=== PATIENT | female | born 1965 | race Caucasian/White ===

== ENCOUNTER → 2018-01-27 14:45 | Outpatient (CLI) | payer OTHER, SELFPAY ==
--- NOTE | 2018-01-27 | DI.MG.S_ITS ---
BILATERAL DIGITAL SCREENING MAMMOGRAM 3D/2D WITH CAD: 01/27/2018 CLINICAL: Routine screening. Comparison is made to exams dated: 11/08/2011 mammogram - [facility] and 04/16/2003 mammogram - [facility]. The tissue of both breasts is heterogeneously dense. This may lower the sensitivity of mammography. Current study was also evaluated with a Computer Aided Detection (CAD) system. No significant masses, calcifications, or other findings are seen in either breast. There has been no significant interval change. IMPRESSION: NEGATIVE There is no mammographic evidence of malignancy. A 1 year screening mammogram is recommended. This exam was interpreted at Station ID: [id number]. NOTE: For mammograms, a report in lay terms will be sent to the patient. Approximately 15% of breast malignancies will not be visualized mammographically. In the management of a palpable breast mass, a negative mammogram must not discourage biopsy of a clinically suspicious lesion. Electronically Signed By: Rell coronado/mehul:01/27/2018 17:08:39 letter sent: Normal Exam ACR BI-RADS Category 1: Negative 3341F
== END ==
PROVIDERS: Family Provider Family Medicine; PCP Family Medicine; Visit Provider Family Medicine
DX: Z12.31 Encounter for screening mammogram for malignant neoplasm of breast (principal)
CPT/HCPCS: 77063; 77067

== ENCOUNTER 2019-11-13 12:34 | Emergency (ER) | payer OTHER, MEDICAID, SELFPAY ==
[2019-11-13 12:42] VITALS: BP 140/78; PULSE 85; RESP 16; TEMP 36.9; O2SAT 100; BMI 25.1
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
--- NOTE | 2019-11-13 12:53 | DI.RAD.S_ITS ---
PROCEDURE: XR CHEST 1V INDICATIONS: chest tightness TECHNIQUE: One view of the chest was acquired. COMPARISON: None. FINDINGS: Surgical changes and devices: None. Lungs and pleura: Lungs are clear. No pleural effusions or pneumothorax. Mediastinum: Mediastinal contours appear normal. Heart size is normal. Bones and chest wall: No suspicious bony lesions. Overlying soft tissues appear unremarkable. IMPRESSION: No acute cardiopulmonary process is evident. Dictated by: Alfonso Sanchez M.D. on 11/13/2019 at 12:40 Approved by: Alfonso Sanchez M.D. on 11/13/2019 at 12:41
--- NOTE | 2019-11-13 13:01 | DI.CT.S_ITS ---
PROCEDURE: CT HEAD/BRAIN WO CON INDICATIONS: memory loss, confusion TECHNIQUE: Noncontrast 4.5 mm thick angled axial sections acquired from the foramen magnum to the vertex, with coronal and sagittal reformats. For radiation dose reduction, the following was used: automated exposure control, adjustment of mA and/or kV according to patient size. COMPARISON: None. FINDINGS: Image quality: Excellent. CSF spaces: Basal cisterns are patent. No extra-axial fluid collections. Ventricles are normal in size and shape. Brain: No midline shift. No intracranial masses or hemorrhage. Cruz-white matter interface is normal. Skull and face: Calvarium and visualized facial bones are intact, without suspicious lesions. Sinuses: Visualized sinuses and mastoids are clear. IMPRESSION: Unremarkable noncontrast head CT for age. Dictated by: Joaquin Hall M.D. on 11/13/2019 at 12:22 Approved by: Joaquin Hall M.D. on 11/13/2019 at 12:23
[2019-11-13 13:08] LABS: Add Manual Diff / Slide Review NO; Basophils Absolute Auto 0 /uL (0-100); Basophils Percent Auto 0.5 % (0-2); Eosinophils Absolute Auto 200 /uL (0-450); Eosinophils Percent Auto 3.4 % (2-4); Hematocrit 38.6 % (36-46); Hemoglobin 12.8 g/dL (12.0-16.0); Lymphocytes Absolute Auto 1900 /uL (1100-4500); Lymphocytes Percent Auto 42.8 % (25-40); Mean Corpuscular HGB Conc 33.1 % (30-36); Mean Corpuscular Volume 90.6 fL (80-100); Monocytes Absolute Auto 300 /uL (0-900); Monocytes Percent Auto 7.2 % (3-14); Neutrophils Absolute Auto 2100 /uL (1500-7000); Neutrophils Percent Auto 46.1 % (50-75); Platelet Count 243 X10^3/uL (150-400); Red Blood Cell Count 4.26 X10^6/uL (4.0-5.2); Red Cell Distribution Width 12.9 % (11.6-14.8); White Blood Cell Count 4.5 X10^3/uL (4.5-11.0)
[2019-11-13 13:19] LABS: Alanine Aminotransferase 14 IU/L (<35); Albumin 4.7 g/dL (3.5-5.0); Albumin Globulin Ratio 1.3 (1.0-2.8); Alkaline Phosphatase 56 U/L (38-126); Aspartate Aminotransferase 25 IU/L (14-36); BUN Creatinine Ratio 15.7 (6-22); Bilirubin Total 0.4 mg/dL (0.2-1.3); Blood Urea Nitrogen 13 mg/dL (7-17); Calcium 9.6 mg/dL (8.4-10.2); Carbon Dioxide 25 mmol/L (22-32); Chloride 107 mmol/L (98-107); Creatine Kinase 99 U/L (30-135); Estimated Glomerular Filt Rate > 60.0 mL/min (>60); Globulin 3.5 g/dL (1.7-4.1); Glucose 104 mg/dL (70-100); HEMOLYSIS < 15 (0-50); Lipase 144 U/L (23-300); Potassium 3.7 mmol/L (3.4-5.1); Sodium 141 mmol/L (137-145); Total Protein 8.2 g/dL (6.3-8.2)
[2019-11-13 13:30] VITALS: BP 132/78; PULSE 79; RESP 18; O2SAT 99
[2019-11-13 13:30] LABS: Troponin I < 0.012 ng/mL (0.01-0.034)
[2019-11-13] MEDS: SODIUM CHLORIDE 0.9% 1,000 ML 1000 ML IV (13:37)
[2019-11-13 15:00] VITALS: BP 120/69; PULSE 76; RESP 18; O2SAT 98
== END 2019-11-13 16:19 | disposition home or self-care (01) ==
PROVIDERS: Emergency Provider Nurse Practitioner; Family Provider Family Medicine; PCP Family Medicine
DX: R41.3 Other amnesia (principal); R07.9 Chest pain, unspecified
CPT/HCPCS: 36415; 70450; 71045; 80053; 81003; 81025; 82550; 83690; 84484; 85025; 93005; 99284; 99285

== ENCOUNTER → 2020-03-10 10:41 | Outpatient (CLI) | payer OTHER, MEDICAID, SELFPAY ==
--- NOTE | 2020-03-10 11:05 | DI.MG.S_ITS ---
Patient Name: PERRY NEWMAN date: 1965 Sex: F Attending Physician: Shanelle Indications: Date: 03/10/2020 10:58 At the request of: JERRY SCHULTE Procedure: MM screening mammo BI BILATERAL DIGITAL SCREENING MAMMOGRAM 3D/2D WITH CAD: 03/10/2020 CLINICAL: Routine screening. Family history of breast cancer. Comparison is made to exams dated: 01/27/2018 mammogram, 11/08/2011 mammogram - [facility], and 04/16/2003 mammogram - [facility]. The tissue of both breasts is heterogeneously dense. This may lower the sensitivity of mammography. Current study was also evaluated with a Computer Aided Detection (CAD) system. There is a new 0.8 cm oval equal density focal asymmetry in the right breast at 11 o'clock posterior depth. No other significant masses, calcifications, or other findings are seen in either breast. IMPRESSION: INCOMPLETE: NEEDS ADDITIONAL IMAGING EVALUATION The new 0.8 cm oval equal density focal asymmetry in the right breast is indeterminate. Additional views with possible ultrasound are recommended. This exam was interpreted at Station ID: [id number]. NOTE: For mammograms, a report in lay terms will be sent to the patient. Approximately 15% of breast malignancies will not be visualized mammographically. In the management of a palpable breast mass, a negative mammogram must not discourage biopsy of a clinically suspicious lesion. Electronically Signed By: Tawanda Yee M.D. at/mehul:03/10/2020 11:56:53 letter sent: Additional Imaging Needed ACR BI-RADS Category 0: Incomplete 3340F Continued Report - Page 2 of 2 Patient Name: PERRY NEWMAN date: 1965 Sex: F Attending Physician: Shanelle Indications: Date: 03/10/2020 10:58 At the request of: JERRY SCHULTE Procedure: MM screening mammo BI
== END ==
PROVIDERS: Family Provider Family Medicine; PCP Family Medicine; Referring Provider Family Medicine; Visit Provider Family Medicine
DX: Z12.31 Encounter for screening mammogram for malignant neoplasm of breast (principal); Z80.3 Family history of malignant neoplasm of breast
CPT/HCPCS: 77063; 77067

== ENCOUNTER → 2020-04-08 08:44 | Outpatient (CLI) | payer OTHER, MEDICAID, SELFPAY ==
--- NOTE | 2020-04-08 | DI.MG.S_ITS ---
UNILATERAL RIGHT DIGITAL DIAGNOSTIC MAMMOGRAM 3D/2D WITH ADDITIONAL VIEWS: 04/08/2020 CLINICAL: Additional evaluation requested from prior study. Comparison is made to exams dated: 03/10/2020 mammogram, 01/27/2018 mammogram, and 11/08/2011 mammogram - [facility]. The tissue of right breast is heterogeneously dense. This may lower the sensitivity of mammography. The 0.8 cm oval equal density focal asymmetry in the right breast at 11 o'clock posterior depth is not seen with spot compression and is consistent with fibroglandular tissue. No other significant masses or calcifications are seen in the breast. IMPRESSION: BENIGN There is no mammographic evidence of malignancy. Return to annual mammogram screening schedule is recommended. This exam was interpreted at Station ID: [id number]. NOTE: For mammograms, a report in lay terms will be sent to the patient. Approximately 15% of breast malignancies will not be visualized mammographically. In the management of a palpable breast mass, a negative mammogram must not discourage biopsy of a clinically suspicious lesion. Electronically Signed By: Berny Banda M.D. jr/:04/08/2020 09:13:19 letter sent: Normal Exam ACR BI-RADS Category 2: Benign Finding(s) 3342F
== END ==
PROVIDERS: Family Provider Family Medicine; PCP Family Medicine; Referring Provider Family Medicine; Visit Provider Family Medicine
DX: R92.8 Other abnormal and inconclusive findings on diagnostic imaging of breast (principal)
CPT/HCPCS: 77065; G0279

== ENCOUNTER → 2020-04-21 16:09 | Outpatient (CLI) | payer OTHER, MEDICAID, SELFPAY ==
--- NOTE | 2020-04-21 | DI.RAD.S_ITS ---
PROCEDURE: XR CERVICAL SPINE 4V OR 5V INDICATIONS: Neck Pain TECHNIQUE: 6 views of the cervical spine were acquired. COMPARISON: None. FINDINGS: Bones: No fracture. Multilevel degenerative endplate sclerosis and spurring. Diffuse facet arthropathy. Diffuse mild narrowing of the cervical disc spaces. Straightening of the normal lordotic curvature. No evidence of abnormal motion with dynamic flexion and extension lateral views. Decreased range of motion Soft tissues: Prevertebral soft tissues are normal in thickness. IMPRESSION: Mild multilevel cervical spondylosis and facet arthropathy. No evidence of abnormal motion with dynamic flexion and extension lateral views. Dictated by: Tulio Etienne M.D. on 04/21/2020 at 17:25 Approved by: Tulio Etienne M.D. on 04/21/2020 at 17:27
== END ==
PROVIDERS: Family Provider Family Medicine; PCP Family Medicine; Referring Provider Family Medicine; Visit Provider Family Medicine
DX: M54.2 Cervicalgia (principal); M47.812 Spondylosis without myelopathy or radiculopathy, cervical region
CPT/HCPCS: 72050

== ENCOUNTER → 2021-05-02 15:51 | Outpatient (CLI) | payer OTHER, MEDICAID, SELFPAY ==
--- NOTE | 2021-05-02 | DI.MG.S_ITS ---
BILATERAL DIGITAL SCREENING MAMMOGRAM 3D/2D WITH CAD: 05/02/2021 CLINICAL: Routine screening. Family history of breast cancer. Comparison is made to exams dated: 04/08/2020 mammogram, 03/10/2020 mammogram, 11/08/2011 mammogram, and 01/27/2018 mammogram - [facility]. The tissue of both breasts is heterogeneously dense. This may lower the sensitivity of mammography. Current study was also evaluated with a Computer Aided Detection (CAD) system. No significant masses, calcifications, or other findings are seen in either breast. There has been no significant interval change. IMPRESSION: NEGATIVE There is no mammographic evidence of malignancy. A 1 year screening mammogram is recommended. This exam was interpreted at Station ID: [id number]. NOTE: For mammograms, a report in lay terms will be sent to the patient. Approximately 15% of breast malignancies will not be visualized mammographically. In the management of a palpable breast mass, a negative mammogram must not discourage biopsy of a clinically suspicious lesion. Electronically Signed By: Ambrose Avery acr/mehul:05/02/2021 16:16:58 letter sent: Normal Exam ACR BI-RADS Category 1: Negative 3341F
== END ==
PROVIDERS: Family Provider Family Medicine; PCP Family Medicine; Referring Provider Family Medicine; Visit Provider Family Medicine
DX: Z12.31 Encounter for screening mammogram for malignant neoplasm of breast (principal); Z80.3 Family history of malignant neoplasm of breast
CPT/HCPCS: 77063; 77067

== ENCOUNTER → 2022-06-08 09:16 | Outpatient (CLI) | payer OTHER, MEDICAID, SELFPAY ==
--- NOTE | 2022-06-08 | DI.MG.S_ITS ---
BILATERAL DIGITAL SCREENING MAMMOGRAM 3D/2D WITH CAD: 06/08/2022 CLINICAL: Routine screening. Family history of breast cancer. Comparison is made to exams dated: 05/02/2021 mammogram, 03/10/2020 mammogram, and 01/27/2018 mammogram - [facility]. There are scattered areas of fibroglandular density in both breasts (category b / 25%-50% glandular tissue). Current study was also evaluated with a Computer Aided Detection (CAD) system. No significant masses, calcifications, or other findings are seen in either breast. There has been no significant interval change. IMPRESSION: NEGATIVE There is no mammographic evidence of malignancy. A 1 year screening mammogram is recommended. Based on Tyrer-Cuzick model (a risk assessment model), the patient's lifetime risk is 24.8% and her 10 year risk is 7.5%. If a patient has an elevated risk, a more comprehensive evaluation should be considered and/or a referral to a genetic counselor. The [employer], [employer], and NCCN Guidelines advise the consideration of Breast MRI as an adjunct to screening mammography in patients whose Lifetime risk to develop breast cancer is 20% or higher. This exam was interpreted at Station ID: [id number]. NOTE: For mammograms, a report in lay terms will be sent to the patient. Approximately 15% of breast malignancies will not be visualized mammographically. In the management of a palpable breast mass, a negative mammogram must not discourage biopsy of a clinically suspicious lesion. Electronically Signed By: Susanne richard/mehul:06/08/2022 14:10:32 letter sent: Normal Exam ACR BI-RADS Category 1: Negative 3341F
== END ==
PROVIDERS: Family Provider Family Medicine; PCP Family Medicine; Referring Provider Family Medicine; Visit Provider Family Medicine
DX: Z12.31 Encounter for screening mammogram for malignant neoplasm of breast (principal); Z80.3 Family history of malignant neoplasm of breast
CPT/HCPCS: 77063; 77067

== ENCOUNTER → 2023-01-22 08:33 | Outpatient (CLI) | payer OTHER, MEDICAID, SELFPAY ==
[2023-01-22 10:56] LABS: Alanine Aminotransferase 16 IU/L (<35); Albumin 4.3 g/dL (3.5-5.0); Albumin Globulin Ratio 1.5 (1.0-2.8); Alkaline Phosphatase 67 U/L (38-126); Aspartate Aminotransferase 20 IU/L (14-36); BUN Creatinine Ratio 19.7 (6-22); Bilirubin Total 0.2 mg/dL (0.2-1.3); Blood Urea Nitrogen 15 mg/dL (7-17); Calcium 9.3 mg/dL (8.4-10.2); Carbon Dioxide 30 mmol/L (22-32); Chloride 103 mmol/L (98-107); Estimated Glomerular Filt Rate > 60 mL/min (>60); Globulin 2.9 g/dL (1.7-4.1); Glucose 89 mg/dL (70-100); HEMOLYSIS < 15 (0-50); Potassium 4.3 mmol/L (3.4-5.1); Sodium 139 mmol/L (137-145); Total Protein 7.2 g/dL (6.3-8.2)
== END ==
PROVIDERS: Family Provider Family Medicine; PCP Registered Nurse; Referring Provider Registered Nurse; Visit Provider Registered Nurse
DX: B35.1 Tinea unguium (principal)
CPT/HCPCS: 36415; 80053

== ENCOUNTER → 2023-03-04 18:36 | Outpatient (CLI) | payer OTHER, MEDICAID, SELFPAY ==
--- NOTE | 2023-03-04 | DI.RAD.S_ITS ---
PROCEDURE: XR CERVICAL SPINE 4V OR 5V INDICATIONS: neck pain TECHNIQUE: 5 views of the cervical spine acquired. COMPARISON: [facility], CR, XR CERVICAL SPINE 4V OR 5V, 04/21/2020, 16:07. FINDINGS: Bones: No fractures or dislocations to the C7 level. Oblique images demonstrate no bony foraminal stenoses. Reversal of the normal cervical lordosis. Moderate disc height loss at C4-5. Mild disc height loss at remaining levels. Patent neural foramen on oblique views. Soft tissues: No prevertebral soft tissue swelling. IMPRESSION: Mild to moderate, multilevel degenerative disc disease. This has not significantly progressed since 2019. Dictated by: Nima Ashraf M.D. on 03/04/2023 at 20:57 Approved by: Nima Ashraf M.D. on 03/04/2023 at 20:59
== END ==
PROVIDERS: Family Provider Family Medicine; PCP Registered Nurse; Referring Provider Registered Nurse; Visit Provider Registered Nurse
DX: G44.209 Tension-type headache, unspecified, not intractable (principal); M50.321 Other cervical disc degeneration at C4-C5 level
CPT/HCPCS: 72050

== ENCOUNTER → 2024-02-05 08:17 | Outpatient (CLI) | payer OTHER, MEDICAID, SELFPAY ==
[2024-02-05 09:06] LABS: Add Manual Diff / Slide Review NO; Basophils Absolute Auto 0 /uL (0-100); Basophils Percent Auto 0.7 % (0-2); Eosinophils Absolute Auto 100 /uL (0-450); Hematocrit 37.8 % (36-46); Hemoglobin 12.8 g/dL (12.0-16.0); Lymphocytes Absolute Auto 2100 /uL (1100-4500); Mean Corpuscular HGB Conc 33.9 % (30-36); Mean Corpuscular Volume 88.5 fL (80-100); Monocytes Absolute Auto 400 /uL (0-900); Monocytes Percent Auto 8.8 % (3-14); Neutrophils Absolute Auto 1900 /uL (1500-7000); Neutrophils Percent Auto 41.5 % (50-75); Platelet Count 228 X10^3/uL (150-400); Red Blood Cell Count 4.27 X10^6/uL (4.0-5.2); Red Cell Distribution Width 12.9 % (11.6-14.8); White Blood Cell Count 4.7 X10^3/uL (4.5-11.0)
[2024-02-05 09:33] LABS: Alanine Aminotransferase 15 IU/L (<35); Albumin 4.4 g/dL (3.5-5.0); Albumin Globulin Ratio 1.6 (1.0-2.8); Alkaline Phosphatase 71 U/L (38-126); Aspartate Aminotransferase 22 IU/L (14-36); BUN Creatinine Ratio 22.5 (6-22); Bilirubin Total 0.5 mg/dL (0.2-1.3); Blood Urea Nitrogen 18 mg/dL (7-17); Calcium 9.2 mg/dL (8.4-10.2); Carbon Dioxide 25 mmol/L (22-32); Chloride 105 mmol/L (98-107); Cholesterol 228 mg/dL (140-199); Estimated Glomerular Filt Rate > 60 mL/min (>60); Globulin 2.7 g/dL (1.7-4.1); Glucose 88 mg/dL (70-100); HDL Cholesterol 67 mg/dL (40-60); HEMOLYSIS < 15 (0-50); LDL Cholesterol Calculated 148 mg/dL (<100); Potassium 4.3 mmol/L (3.4-5.1); Sodium 138 mmol/L (137-145); Total Protein 7.1 g/dL (6.3-8.2); Triglycerides 64 mg/dL (35-150)
[2024-02-05 09:43] LABS: Free T4, Direct Thyroxine 0.84 ng/dL (0.78-2.19)
[2024-02-05 09:48] LABS: Hemoglobin A1C% w Est Avg Glu 5.5 % (4.0-6.0)
== END ==
LOC: LAB 08:19
PROVIDERS: Family Provider Family Medicine; PCP Registered Nurse; Referring Provider Registered Nurse; Visit Provider Registered Nurse
DX: Z13.220 Encounter for screening for lipoid disorders (principal); Z13.228 Encounter for screening for other metabolic disorders; Z13.0 Encounter for screening for diseases of the blood and blood-forming organs and certain disorders involving the immune mechanism; R79.89 Other specified abnormal findings of blood chemistry
CPT/HCPCS: 36415; 80053; 80061; 83036; 84439; 84443; 85025

== ENCOUNTER 2024-06-12 08:28 | Day surgery (SDC) | payer OTHER, MEDICAID, SELFPAY ==
[2024-06-09 12:26] VITALS: BMI 26.5
--- NOTE | 2024-06-12 | PATH_ITS ---
[facility] Accession Number: [id number] No. of containers..03 Tissue . 01 Material submitted: . PART A: labium minus - RIGHT LABIA MINORA PART B: labium minus - LEFT LABIA MINORA 3 O'CLOCK PART C: FOURCHETTE - POSTERIOR FOURCHETTE @ 7 O'CLOCK . 01 Diagnosis: A. RIGHT LABIA MINORA, EXCISION: High-grade squamous intraepithelial lesion (MARTHA-3, usual type), examined inked margins free. . B. LEFT LABIA MINORA 3 O'CLOCK, EXCISION: High-grade squamous intraepithelial lesion (MARTHA-3, usual type), examined inked margins free. . C. POSTERIOR FOURCHETTE AT 7 O'CLOCK, BIOPSY: High-grade squamous intraepithelial lesion (MARTHA-3, usual type), present at the inked tissue edge. [facility] 06/24/2024 1719 Local . 01 Comment: A, B, C. P16 immunohistochemical stain performed supports the above diagnosis. Evaluation is limited by tangential orientation. . The histologic material was reviewed with Dr. Aydin Russell, who concurs. . 01 Electronically signed: . Eileen Linder MD, Dermatopathologist NPI- [id number] . 01 Gross description: . A. Received in formalin with two patient identifiers and right labia minora, is a sue fragment of skin measuring 2.1 x 0.8 x 0.4 cm. Inked blue, serially sectioned into 9 slices, and submitted entirely as follows: A1: Tips. A2-A3: Remaining sequential slices. B. Received in formalin with two patient identifiers and left labia minora at 3 o'clock, is a sue to brown fragment of skin measuring 1.2 x 0.8 x 0.3 cm. Inked blue, serially sectioned into five slices, and submitted entirely as follows: B1: Tips. B2: Remaining slices. C. Received in formalin with two patient identifiers and posterior fourchette at 7 o'clock, is a sue to brown fragment of skin, 0.9 x 0.4 x 0.3 cm. Inked blue, bisected, and submitted entirely in C1. ([id number]) /MRV 06/16/2024 1304 Local . 01 Pathologist provided ICD-10: D04.9 . 01 CPT . 370271, 097995, 376763, [id number], L55776 Specimen Comment: A courtesy copy of this report has been sent to [facility] Pathology Performed at: [address] [facility] [address] [address], [place], [place] [id number] MD Rell Stein MD Phone: [phone]
[2024-06-12] MEDS: LACTATED RINGERS 1,000 ML 42 ML IV (09:02)
[2024-06-12 09:04] VITALS: BP 110/73; PULSE 76; RESP 16; TEMP 36.7; O2SAT 97; BMI 26.5
--- NOTE | 2024-06-12 09:25 | P.HPOB_ITS ---
History of Present Illness History of Present Illness Narrative: Elif Lawton is a 58 year postmenopasual female who presents to facility for scheduled outpatient surgical procedure, wide local excision of L labial lesion after unanticipated finding of VIN3 at time of office punch biopsy March 2024. Patient was notified via phone of results and expressed desire to proceed immediately with scheduling procedure, delayed until today secondary to pt request/coordination of schedule. Patient denies interval changes in area. Expresses understanding of procedure as scheduled and desires to proceed. Denies significant changes in personal or family health history since time of last encounter. [facility] Medical History (Updated 06/12/24 @ 09:36 by Britni Bergeron MD) MARTHA III (vulvar intraepithelial neoplasia III) Mumps (~1972) Chicken pox (~1970) Abnormal Pap smear of cervix Genitourinary syndrome of menopause Labial lesion Vaginal inclusion cyst Lazy eye of left side Surgical History (Updated 04/30/24 @ 19:02 by Duyen Michaels) Anesthesia History of rhinoplasty (~2021) Family History (Updated 04/30/24 @ 19:04 by Duyen Michaels) Mother Cancer Melanoma Grandmother Diabetes mellitus Grandfather History of heart disease Social History marital status: household members: spouse Smoking Status: Never smoker alcohol intake: never Meds Home Medications and Allergies Home Medications Medication Instructions Recorded Confirmed Type meloxicam 7.5 mg tablet 7.5 mg PO BID 03/10/24 03/10/24 History tizanidine 2 mg tablet 2 mg PO 3XD 03/10/24 03/10/24 History estradiol 0.01% (0.1 mg/gram) 1 g vaginal 3XW #42.5 grams 04/13/24 Rx vaginal cream Allergies Allergy/AdvReac Type Severity Reaction Status Date / Time No Known Drug Allergies Allergy Verified 06/12/24 08:45 Review of Systems Review of Systems ROS: Yes All systems reviewed with the patient and are negative except as otherwise documented Exam Vital Signs (past 8 hours): - 06/12/24 09:04 Temperature 98.1 F Pulse Rate 76 Respiratory Rate 16 Blood Pressure 110/73 Pulse Oximetry 97 Oxygen Delivery Method Room Air Oxygen Delivery Method Room Air Const General: cooperative, healthy appearing and comfortable Nutritional Appearance: average body habitus Orientation: alert, awake and oriented x3 Limitations: mental status not altered Resp Effort & Inspection: normal respiratory effort and able to speak in complete sentences Other: deferred per shared decision making with patient Skin General: no rashes or lesions noted Neuro General: patient alert, patient awake and patient oriented x3 Extrem General: normal to inspection Psych Mental Status: mental status grossly normal Judgment: judgment good Assessment & Plan Assessment and plan (1) MARTHA III (vulvar intraepithelial neoplasia III): Status: Acute Plan 58yo postmenopasual female presents for scheduled outpatient surgical procedure, WLE of L labial lesion following +VIN3 on office punch biopsy WLE of L labial lesion plan of care reviewed including anticipated postoperative course risks, benefits and alternatives to procedure reviewed; patient verbalized understanding and desires to proceed operative consent completed: EUA, wide local excision of L labial lesion, additional biopsies as indicated by intraoperative findings Anticipate routine outpatient f/u in office as scheduled Time-Based Coding :: [TOTAL MINUTES] spent with patient and on the chart (including review of chart, obtaining history, exam, reviewing outside data, placing orders, documenting exam and treatment plan, and counseling patient) on [DATE].
--- NOTE | 2024-06-12 09:25 | PM.PREOP ---
Pre-operative Note Interval Note History & Physical reviewed/Exam performed by Physician: Yes Changes to H&P: No H&P completed within 30 days and has changed as indicated here:: 06/12/24 ASA Class (for procedural sedation): II
[2024-06-12] MEDS: CEFAZOLIN 2 GM/100 ML PREMIX 100 ML IV (09:45)
--- NOTE | 2024-06-12 09:57 | SUR.OPER ---
Lithotomy on padded OR bed, head on pillow, arms secured on padded arm boards at <90 degrees abduction. Legs secured in padded yellow fins stirrups.
[2024-06-12] MEDS: BUPIVACAINE 0.5% W/ EPI (PF) 30 ML VIAL INJ (10:08)
[2024-06-12 10:28] VITALS: BP 110/72; PULSE 89; RESP 13; TEMP 36.6; O2SAT 93
--- NOTE | 2024-06-12 10:28 | PM.OP.1 ---
Operative Date/Time/Diagnoses Date of procedure: 06/12/24 Time of procedure: 09:45 Pre-op diagnosis: VIN3 Post-op diagnosis: same Procedure & Clinicians Procedure: Wide local excision x3 Same procedure as scheduled: Yes Indications: VIN3 on office biopsy Surgeon: Britni Bergeron Click Yes if Unassisted: Yes Anesthesia Type: General Operative Notes Findings: stable R labial lesion, newly appreciated L labial and posterior fourchette plaques concerning for additional areas of MARTHA Closure Type: primary Specimen(s): other (L labia minora @ 3o'clock, posterior fourchette at 7 o'clock, R labia minora) Estimated Blood Loss (mL): 10 Blood products transfused: none Procedure in detail: Pt was taken to the operating room, transferred to OR table and anesthesia was induced with placement of LMA.? Pt had her legs placed in Tray stirrups and an exam under anesthesia was performed with identification of 3 areas of vulvar abnormality necessitating WLE: R labia minora, posterior fourchette at 7 o'clock, L labia minora at 3 o'clock. The patient was prepped and draped in a sterile fashion.? A time out was performed.? The areas of planned excision were superficially infiltrated with 0.5% lidocaine with epinephrine for local analgesia and hemostasis. The largest lesion (R labia) was outlined using a surgical marking pen. A shallow elliptical incision was made allowing for 0.5cm margin in all directions. The tissue was grasped using allis clamps, elevated and sharply underminded using the knife; tissue passed off the field for permanent study. The same steps were then performed on the other two identified areas of concern. The R labia was reapproximated first with 3-0 vicryl followed by 4-0 monocryl. The L labia and posterior fourchette incisions were reapproximated with 4-0 monocryl only. Hemostasis was noted to be excellent. All counts correct x2. Patient was extubated and taken to the PACU in stable condition without complication. Complications: none Post-operative Condition: stable Disposition: PACU Plan for aftercare: home, 2wk postop f/u in office
[2024-06-12 10:33] VITALS: BP 111/66; PULSE 79; RESP 12; O2SAT 94
[2024-06-12 10:38] VITALS: BP 113/74; PULSE 77; RESP 12; O2SAT 95
[2024-06-12 10:43] VITALS: BP 103/69; PULSE 69; RESP 16; TEMP 36.4; O2SAT 98
[2024-06-12 10:48] VITALS: BP 107/74; PULSE 71; RESP 14; TEMP 36.6; O2SAT 97
== END 2024-06-12 11:13 | disposition home or self-care (01) ==
PROVIDERS: Family Provider Family Medicine; PCP Registered Nurse; Referring Provider Obstetrics & Gynecology; Visit Provider Obstetrics & Gynecology
PROC: (CPT 56620; principal; 2024-06-12 09:45)
DX: D07.1 Carcinoma in situ of vulva (principal)
CPT/HCPCS: 56620; J0690; J1100; J1885; J2250; J2405; J2704; J3010

== ENCOUNTER 2024-08-03 12:17 | Day surgery (SDC) | payer OTHER, SELFPAY ==
[2024-07-28 12:12] VITALS: BMI 26.5
--- NOTE | 2024-08-03 | PATH_ITS ---
[facility] Accession Number: [id number] No. of containers..01 Tissue . 01 Material submitted: . vulva - POSTERIOR FOURCHETTE . 01 Diagnosis: POSTERIOR FOURCHETTE, BIOPSIES: Fragments of high-grade squamous intraepithelial lesion (MARTHA-3, usual type), present at the inked tissue edge. MRV 08/07/2024 1656 Local . 01 Comment: Immunohistochemical stains performed with p16 and Ki-67 markers support the above diagnosis. . The histologic material was reviewed with Dr. Aydin Russell, who concurs. . 01 Electronically signed: . Eileen Linder MD, Dermatopathologist NPI- [id number] . 01 Gross description: . Received in formalin with two patient identifiers and posterior fourchette, are four sue to brown fragments of skin, the largest measuring 2.1 x 1.8 x 0.5 cm. Inked blue, serially sectioned, and submitted entirely in A1-A2. The remaining fragments range from 0.6 x 0.3 x 0.2 cm to 1.4 x 0.3 x 0.3 cm. All suspected margins are inked green. All submitted intact in A3. (KB:[id number]) /MRV 08/04/2024 1722 Local . 01 Pathologist provided ICD-10: D04.9 . 01 CPT . 777736, [id number], [id number] Specimen Comment: A courtesy copy of this report has been sent to [facility] Pathology Performed at: [address] [address], [place], [place] [id number] MD Rell Stein MD Phone: [phone]
[2024-08-03] MEDS: ACETAMINOPHEN 325 MG TABLET 975 MG PO (12:53)
[2024-08-03] MEDS: LACTATED RINGERS 1,000 ML 42 ML IV (12:53)
[2024-08-03 13:08] VITALS: BP 114/72; PULSE 73; RESP 16; TEMP 36.8; O2SAT 97; BMI 26.5
--- NOTE | 2024-08-03 13:51 | PM.PREOP ---
Pre-operative Note Interval Note History & Physical reviewed/Exam performed by Physician: Yes Changes to H&P: No H&P completed within 30 days and has changed as indicated here:: 07/14/24 ASA Class (for procedural sedation): II
--- NOTE | 2024-08-03 14:37 | SUR.OPER ---
Lithotomy on padded OR bed, head on pillow, arms secured on padded arm boards at <90 degrees abduction. Legs secured in padded yellow fins stirrups.
[2024-08-03] MEDS: ACETIC ACID 500 ML IRRIG 20 ML TOP (14:41)
[2024-08-03] MEDS: BUPIVACAINE 0.25% W/ EPI 30 ML VIAL INJ (14:41)
--- NOTE | 2024-08-03 15:01 | PM.OP.1 ---
Operative Date/Time/Diagnoses Date of procedure: 08/03/24 Time of procedure: 15:01 Pre-op diagnosis: MARTHA 3 Post-op diagnosis: same Procedure & Clinicians Procedure: EUA, WLE of posterior fourchette Same procedure as scheduled: Yes Indications: biopsy-proven VIN3 Surgeon: Britni Bergeron Click Yes if Unassisted: Yes Anesthesia Type: General Operative Notes Findings: stable exam of external female genitalia persistent area of acetowhite change, posterior fourchette Closure Type: primary Specimen(s): other (posterior fourchette) Estimated Blood Loss (mL): 5 Procedure in detail: Pt was taken to the operating room, transferred to OR table and anesthesia was induced with placement of LMA. Pt had her legs placed in Tray stirrups and an exam under anesthesia was performed. The patient was prepped and draped in a sterile fashion.? A time out was performed.? A moistened sponge impregnated with 1% acetic acid was applied to the vulva for 2 minutes. Visual inspection thereafter noted single area of scant persistent acetowhite change of posterior fourchette. A 1cm margin was demarcated and area was superficially infiltrated with 8cc of 0.25% marcaine with epinephrine for local analgesia and hemostasis. The area was sharply excised using the #15 blade, after which the epithelium was sharply undermined and amputated, passed off the field for permanent study. The wound bed was reapproximated with serial interrupted suture using 3-0 vicryl. The vulvar epithelium was then reapproximated with 4-0 monocryl in a running fashion. Hemostasis was noted. All counts correct x2, patient awakened from anesthesia and extubated without difficulty, transported to PACU in stable condition Complications: none Post-operative Condition: stable Disposition: PACU Plan for aftercare: dc to home pending recovery scheduled 2wk f/u in office
[2024-08-03 15:08] VITALS: BP 117/73; PULSE 91; RESP 3; TEMP 36.3; O2SAT 96
[2024-08-03 15:13] VITALS: BP 108/73; PULSE 81; RESP 13; O2SAT 95
[2024-08-03 15:18] VITALS: BP 110/72; PULSE 76; RESP 12; O2SAT 97
[2024-08-03 15:23] VITALS: BP 115/78; PULSE 71; RESP 13; TEMP 36.4; O2SAT 97
[2024-08-03] MEDS: OXYCODONE IR 5 MG TABLET PO (15:29)
[2024-08-03 15:36] VITALS: BP 114/80; PULSE 97; RESP 12; O2SAT 97
== END 2024-08-03 15:45 | disposition home or self-care (01) ==
PROVIDERS: Family Provider Family Medicine; PCP Registered Nurse; Referring Provider Obstetrics & Gynecology; Visit Provider Obstetrics & Gynecology
PROC: (CPT 56620; principal; 2024-08-03 15:30)
DX: D07.1 Carcinoma in situ of vulva (principal)
CPT/HCPCS: 56620; J1100; J2250; J2405; J2704; J3010

== ENCOUNTER → 2024-10-09 16:30 | Outpatient (CLI) | payer BC, SELFPAY ==
[2024-10-09 18:45] LABS: Cholesterol 234 mg/dL (140-199); HDL Cholesterol 70 mg/dL (40-60); LDL Cholesterol Calculated 147 mg/dL (<100); Triglycerides 84 mg/dL (35-150)
[2024-10-09 19:14] LABS: TSH w/ Reflex to FT4 3.34 uIU/mL (0.47-4.68)
[2024-10-11 08:08] LABS: Apolipoprotein B 95 mg/dL (<90)
== END ==
PROVIDERS: Family Provider Family Medicine; PCP Family Medicine; Referring Provider Family Medicine; Visit Provider Family Medicine
DX: R79.89 Other specified abnormal findings of blood chemistry (principal); E78.5 Hyperlipidemia, unspecified
CPT/HCPCS: 36415; 80061; 82172; 84443